=== PATIENT | female | born 1980 | race Caucasian/White ===

== ENCOUNTER 2021-10-31 11:24 | Observation (INO) | payer OTHER ==
[2021-10-31] MEDS ORDERED: NITROGLYCERIN SL TABS 0.4 MG TAB SUBLINGUAL STA (12:08)
[2021-10-31] MEDS ORDERED: ASPIRIN 81 MG PO STA (12:08)
--- NOTE | 2021-10-31 12:13 | ED ---
Chest Pain HPI - General Chief Complaint: Chest Pain Stated Complaint: chest pain, headache Time Seen by Provider: 10/31/21 11:44 Source: patient, RN notes reviewed Mode of arrival: ambulatory - History of Present Illness Initial Comments: 41-year-old female with no prior history of heart disease who states she's been having chest discomfort with radiation to left shoulder and neck area she states it started around 5:55 AM this morning. States she is also having intermittent palpitations and feeling like her heart beat harder over last several days. No fevers chills nausea vomiting sweats no cough or phlegm production nothing seems make his pain worse nothing seems make it better. Moderate severity. It later was described as an achy heaviness. MD Complaint: chest pain - Related Data Home Medications Medication Instructions Recorded Confirmed Melatonin 10mg Gummy 10 mg PO HS PRN 10/31/21 10/31/21 Allergies Allergy/AdvReac Type Severity Reaction Status Date / Time No Known Allergies Allergy Verified 10/31/21 14:03 Review of Systems ROS Statement: Those systems with pertinent positive or pertinent negative responses have been documented in the HPI. ROS Other: All systems not noted in ROS Statement are negative. EKG Findings - EKG Results: EKG: interpreted by FERDINAND, sinus rhythm (Sinus rhythm rate of 94. 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 Absent: scleral icterus, conjunctival injection, periorbital swelling ENT exam: Present: normal exam, mucous membranes moist Neck exam: Present: normal inspection, full ROM, other (No stridor JVD or bruits). Absent: tenderness, meningismus, lymphadenopathy Respiratory exam: Present: normal lung sounds bilaterally. Absent: respiratory distress, wheezes, rales, rhonchi, stridor, chest wall tenderness Cardiovascular Exam: Present: regular rate, normal rhythm, normal heart sounds. Absent: systolic murmur, diastolic murmur, rubs, gallop, clicks GI/Abdominal exam: Present: soft, normal bowel sounds. Absent: distended, tenderness, guarding, rebound, rigid Extremities exam: Present: normal inspection, full ROM, normal capillary refill. Absent: tenderness, pedal edema, joint swelling, calf tenderness Back exam: Present: normal inspection Neurological exam: Present: alert, oriented X3, CN II-XII intact Psychiatric exam: Present: normal affect, normal mood Skin exam: Present: warm, dry, intact, normal color. Absent: rash Course Vital Signs 10/31/21 10/31/21 10/31/21 11:31 12:16 13:31 Temperature 99.9 F H Pulse Rate 106 H 84 Respiratory 18 18 Rate Blood Pressure 190/125 133/85 O2 Sat by Pulse 99 98 Oximetry Chest Pain MDM - MDM Imaging reviewed no definitive findings I did discuss the findings with the patient the etiology at this time is unclear patient did have low-grade temperature upon arrival 98.9 she is a nonsmoker I did discuss case with her she will be admitted with cardiology consultation case was also d/w with Dr. Cee Disposition Clinical Impression: Chest pain, Atypical chest pain Disposition: ADMITTED IP TO THIS [facility] Condition: Fair Referrals: Stephen Benitez MD [Primary Care Provider] - 1-2 days
--- NOTE | 2021-10-31 12:58 | XR ---
EXAMINATION TYPE: XR chest 2V DATE OF EXAM: 10/31/2021 COMPARISON: Chest x-ray September 14, 2015. HISTORY: Chest pain. TECHNIQUE: Frontal and lateral views of the chest are obtained. FINDINGS: There is no suspicious new focal air space opacity, pleural effusion, or pneumothorax seen . The cardiac silhouette size remains within normal limits . Underlying scoliotic curvature redemons trated. Overlying EKG leads are now seen. IMPRESSION: No acute process.
[2021-10-31 13:02] LABS: Basophils # (A) 0.1 k/uL (0-0.2); Basophils % (A) 1 %; Eosinophils % (A) 0 %; HCT 41.8 % (34.0-46.0); HGB 13.8 gm/dL (11.4-16.0); Lymphocytes # (A) 2.5 k/uL (1.0-4.8); Lymphocytes % (A) 26 %; MCV 81.7 fL (80.0-100.0); Monocytes # (A) 0.5 k/uL (0-1.0); Monocytes % (A) 5 %; Neutrophils # (A) 6.3 k/uL (1.3-7.7); Neutrophils % (A) 65 %; Platelet Count 316 k/uL (150-450); RBC 5.11 m/uL (3.80-5.40); RDW 14.7 % (11.5-15.5); WBC 9.7 k/uL (3.8-10.6)
[2021-10-31 13:08] LABS: ALT 29 U/L (4-34); AST 31 U/L (14-36); African American GFR (CKD) >90 (>60 ml/min/1.73 sqM); Albumin 4.5 g/dL (3.5-5.0); Alkaline Phosphatase 93 U/L (38-126); Anion Gap 11 mmol/L; Blood Urea Nitrogen 10 mg/dL (7-17); Calcium 9.6 mg/dL (8.4-10.2); Carbon Dioxide 22 mmol/L (22-30); Chloride 106 mmol/L (98-107); Glucose 114 mg/dL (74-99); Lipase 147 U/L (23-300); Non-African American GFR(CKD) >90 (>60 ml/min/1.73 sqM); Potassium 3.9 mmol/L (3.5-5.1); Sodium 139 mmol/L (137-145); Total Bilirubin 0.5 mg/dL (0.2-1.3); Total Protein 7.6 g/dL (6.3-8.2)
[2021-10-31 13:27] LABS: INR 0.9 (<1.2); Partial Thromboplastin Time 23.4 sec (22.0-30.0); Prothrombin Time 10.1 sec (9.0-12.0)
[2021-10-31] MEDS ORDERED: NALOXONE 0.4 MG/ML 1 ML VIAL IV PRN (16:28)
[2021-10-31] MEDS ORDERED: METOPROLOL TARTRATE 12.5 MG TAB PO STA (17:54)
[2021-10-31] MEDS ORDERED: MELATONIN 3 MG TABLET PO PRN (18:08)
[2021-10-31] MEDS ORDERED: ONDANSETRON 4 MG/2 ML VIAL IVP PRN (18:08)
[2021-10-31] MEDS ORDERED: NALOXONE 0.4 MG/ML 1 ML VIAL IVP PRN (18:08)
[2021-10-31] MEDS ORDERED: ACETAMINOPHEN TAB 325 MG TAB PO PRN (18:10)
[2021-10-31] MEDS ORDERED: MELATONIN 5 MG TABLET PO PRN (18:11)
--- NOTE | 2021-10-31 18:30 | P.HPIM ---
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 On arrival to the ER her fever was 99 9 and pulse was 106 she was also noted to be hypertensive and blood pressure of 190/125. Initial EKG demonstrated normal sinus rhythm with normal access and no significant ST-T wave changes. Chest x-ray showed no acute process. Initial troponin was negative. Arrangements are made for her chest pain observation. Patient seen and examined at bedside in the emergency department. She reports that she came home from work this morning and had some left-sided retrosternal chest pain which she describes as a pressure, which radiated up into her left neck and down into her left arm and was associated with lightheadedness, dizziness, nausea, vomiting, and a feeling of a pounding in her chest. She reports that she became concerned and therefore reported to the ER. She denies any recent changes in medications. She reports that she had chest pain earlier this month and saw her primary care physician. She was also complaining of fatigue, weight gain, and shortness of breath. At that point in time he thought she had depression, though she describes no feelings of being depressed and suggested starting on multiple medications none of which she took. Her chest pain abated from that time until today. She has had some increasing GARCIA which is a band like feeling at the front of her head. She reports that she has been having some flushing and diaphoresis at times. She initially was followed with multiple echocardiograms as a child after having Kawasaki's requiring seven-day hospital stay. 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 Pertinent positives and negatives as discussed in HPI, a complete review of syst ems was performed and all other systems are negative. General: non toxic, no distress, appears at stated age Derm: warm, dry Head: atraumatic, normocephalic, symmetric Eyes: EOMI, no lid lag, anicteric sclera, pupils equal round reactive to light ENT: Nose and ears atraumatic, no thrush, no pharyngeal erythema Neck: No thyromegaly, no cervical lymphadenopathy, trachea midline, supple Mouth: no lip lesion, mucus membranes moist Cardiovascular: S1S2 reg, no murmur, positive posterior tibial pulse bilateral, no edema, capillary refill less than 2 seconds Lungs: clear to ascultation bilateral, no ronchi, no rales, no wheeze, no accessory muscle use Abdominal: soft, nontender to palpation, no guarding, no appreciable organomegaly, normal bowel sounds Ext: no gross muscle atrophy, muscle strength muscle strength 5 out of 5 in all 4 extremities, no contractures Neuro: CN II-XI grossly intact, light touch intact all 4 extremities, finger to nose within normal limits, Psych: Alert, oriented, appropriate affect Assessment/plan: Hypertensive urgency Chest pain -Start oral metoprolol first dose now -Await formal echocardiogram read, discussed with bench worker hollow handle in ascending aorta without signs of dissection -Serial troponins -Telemetry -Follow blood pressures -Check renal artery Dopplers -Check TSH -Check lipid profile and hemoglobin A1c Obesity with BMI 39.7 -Outpatient structured weight loss The patient is placed in observation with an anticipated less than 2 midnight stay for evaluation of chest pain. Surrogate decision-maker: Mother CODE STATUS: Full DVT prophylaxis: SCDs Discussed with:, Nursing, ED physician Anticipated discharge date: In a.m. Anticipated discharge place: home A total of 65 minutes was spent on the care of this complex patient more than 50% of the time was spent in counseling and care coordination. 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 History of Any Multi-Drug Resistant Organisms: None Reported Past Surgical History: Tubal Ligation Past Psychological History: No Psychological Hx Reported Smoking Status: Never smoker Past Alcohol Use History: None Reported Past Drug Use History: None Reported - Past Family History Mother Additional Family Medical History / Comment(s): HTN, possible renal artery abnormality, Lung cancer Father Additional Family Medical History / Comment(s): HTN, lung cancer Brother(s) Additional Family Medical History / Comment(s): HTN Medications and Allergies Home Medications Medication Instructions Recorded Confirmed Type Melatonin 10mg Gummy 10 mg PO HS PRN 10/31/21 10/31/21 History Allergies Allergy/AdvReac Type Severity Reaction Status Date / Time No Known Allergies Allergy Verified 10/31/21 14:03 Physical Exam Osteopathic Statement: *. No significant issues noted on an osteopathic structural exam other than those noted in the History and Physical/Consult. Vitals: Vital Signs Temp Pulse Resp BP Pulse Ox 10/31/21 16:50 97.9 F 90 18 122/86 97 10/31/21 13:31 84 133/85 98 10/31/21 12:16 18 10/31/21 11:31 99.9 F H 106 H 18 190/125 99 Intake and Output 10/31/21 10/31/21 10/31/21 06:59 14:59 22:59 Other: Weight 95.254 kg Results CBC & Chem 7: 10/31/21 12:30 10/31/21 12:30 Labs: Abnormal Lab Results - Last 24 Hours (Table) 10/31/21 Range/Units 12:30 Glucose 114 H (74-99) mg/dL
--- NOTE | 2021-10-31 20:01 | ECHOF ---
Referral Reason:myocarditis MEASUREMENTS -------- HEIGHT: 154.9 cm WEIGHT: 95.3 kg BP: 133/85 RVIDd: 2.9 cm (< 3.3) IVSd: 1.2 cm (0.6 - 1.1) LVIDd: 3.1 cm (3.9 - 5.3) LVPWd: 1.1 cm (0.6 - 1.1) IVSs: 1.6 cm LVIDs: 2.1 cm LVPWs: 1.5 cm LA Diam: 2.9 cm (2.7 - 3.8) Ao Diam: 3.4 cm (2.0 - 3.7) AV Cusp: 2.3 cm (1.5 - 2.6) MV EXCURSION: 10.325 mm (> 18.000) MV EF SLOPE: 18 mm/s (70 - 150) EPSS: 0.9 cm MV E Reinaldo: 0.86 m/s MV DecT: 251 ms MV A Reinaldo: 1.12 m/s MV E/A Ratio: 0.76 FINDINGS -------- Sinus rhythm. This was a technically adequate study. The left ventricular size is normal. There is borderline concentric left ventricular hypertrophy. Overall left ventricular systolic function is normal with, an EF between 60 - 65 %. The right ventricle is normal in size. The left atrium is normal in size. The right atrium is normal in size. The aortic valve is trileaflet, and appears structurally normal. No aortic stenosis or regurgitation. The mitral valve is normal. The tricuspid valve appears structurally normal. Unable to estimate RVSP due to inadequate TR jet s pectral doppler profile. The pulmonic valve is normal. The aortic root size is normal. IVC Not well visulized. There is no pericardial effusion. CONCLUSIONS -------- 1. The left ventricular size is normal. 2. There is borderline concentric left ventricular hypertrophy. 3. Overall left ventricular systolic function is normal with, an EF between 60 - 65 %. 4. There is no pericardial effusion. REPORT DEVELOPER: Gloria Gomes, [facility]
[2021-10-31] MEDS: METOPROLOL TARTRATE 12.5 MG TAB PO SCH (21:37)
[2021-11-01 06:14] LABS: HCT 43.3 % (34.0-46.0); HGB 13.2 gm/dL (11.4-16.0); Hypochromasia Moderate; MCHC 30.4 g/dL (31.0-37.0); MCV 85.6 fL (80.0-100.0); Mean Platelet Volume 8.8; Platelet Count 297 k/uL (150-450); RBC 5.06 m/uL (3.80-5.40); RDW 14.3 % (11.5-15.5); WBC 9.5 k/uL (3.8-10.6)
[2021-11-01 06:33] LABS: African American GFR (CKD) >90 (>60 ml/min/1.73 sqM); Anion Gap 11 mmol/L; Blood Urea Nitrogen 15 mg/dL (7-17); Calcium 9.1 mg/dL (8.4-10.2); Carbon Dioxide 21 mmol/L (22-30); Chloride 107 mmol/L (98-107); Glucose 95 mg/dL (74-99); Non-African American GFR(CKD) >90 (>60 ml/min/1.73 sqM); Potassium 3.8 mmol/L (3.5-5.1); Sodium 139 mmol/L (137-145)
--- NOTE | 2021-11-01 08:38 | P.CRDCN ---
History of Present Illness History of present illness: HISTORY OF PRESENTING ILLNESS This is a pleasant 41-year-old female past medical history significant for HELLP syndrome during , liver cirrhosis during , Kawasaki syndrome a s a child. 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 We have been asked to see in consultation for chest pain. Patient presented to the emergency department on 10/31/21 with complaints of chest discomfort, palpitations and headache. Patient stated she works nights and after work she experienced left-sided chest pain described as a pressure. She did have some radiation to her left neck and left shoulder. She also had symptoms of palpitations, felt her chest pounding. She did also have a headache, some lightheadedness. She states she mostly feels this discomfort prior to bed, she exhibits palpitations and has chest discomfort. It is non- exertional. No specific aggravating or alleviating factors. She denies any associated nausea, vomiting, syncope or near syncope. She states she is very ac tive. She denies any history of CAD, CA, Stroke, Diabetes, dyslipidemia. No further hypertension after her 8 years ago. She is a non-smoker. Denies illicit drug use. On admission patient hypotensive and tachycardiac blood pressure 190/125, heart rate 106 DIAGNOSTICS EKG reveals sinus rhythm, heart rate 94, T wave inversion in lead III, no acute STT wave abnormalities. Telemetry tracings indicate sinus mechanism, heart rate 60s Echocardiogram revealed an EF of 6065 percent, aortic root size is normal, no dissection that could be noted on echocardiogram Chest xray no acute cardiopulmonary process Laboratory reviewed, troponin is negative 3, viral PCR was negative, sodium 139, potassium 3.8, BUN 15, serum creatinine 0.69, d-dimer negative, proBNP 26, CBC unremarkable Current home medications include PRN melatonin REVIEW OF SYSTEMS At the time of my exam: CONSTITUTIONAL: Denies fever or chills. CARDIOVASCULAR: Denies chest pain, shortness of breath, orthopnea, PND or palpi tations. RESPIRATORY: Denies cough. GASTROINTESTINAL: Denies abdominal pain, diarrhea, constipation, nausea or vomiting. MUSCULOSKELETAL: Denies myalgias. NEUROLOGIC: Denies numbness, tingling, headache or weakness. ENDOCRINE: Denies fatigue, weight change, polydipsia or polyurina. GENITOURINARY: Denies burning, hematuria or urgency with micturation. HEMATOLOGIC: Denies history of anemia or bleeding. PHYSICAL EXAMINATION Blood pressure 107/56, heart rate 62, afebrile, oxygen saturation is 98% on room air CONSTITUTIONAL: No apparent distress. HEENT: Head is normocephalic. Pupils are equal, round. Sclerae anicteric. Mucous membranes of the mouth are moist. No JVD. No carotid bruit. CHEST EXAMINATION: Lungs are clear to auscultation. No chest wall tenderness is noted on palpation or with deep breathing. HEART EXAMINATION: Regular rate and rhythm. S1, S2 heard. No murmurs, gallops or rub. ABDOMEN: Soft, nontender. Positive bowel sounds. EXTREMITIES: 2+ peripheral pulses, no lower extremity edema and no calf tenderness. SKIN: warm, dry NEUROLOGIC EXAMINATION: Patient is awake, alert and oriented x3. ASSESSMENT Chest discomfort, atypical acute coronary syndrome has been ruled out, likely related to hypertension Hypertensive urgency Sinus tachycardia Obesity BMI 39 PLAN Patient with improvement in blood pressure and heart rate with metoprolol Renal ultrasound ordered From a cardiology perspective, no further inpatient workup at this time. Patient may benefit from event monitor as an outpatient. Patient's symptoms resolved, unlikely aortic dissection, if there is continuous concern for aortic dissection CT should be performed. Thank you kindly for this consultation. Nurse practitioner note has been reviewed by physician. Signing provider agrees with the documented findings, assessment, and plan of care. 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 History of Any Multi-Drug Resistant Organisms: None Reported Past Surgical History: Tubal Ligation Past Anesthesia/Blood Transfusion Reactions: No Reported Reaction Past Psychological History: No Psychological Hx Reported Smoking Status: Never smoker Past Alcohol Use History: None Reported Past Drug Use History: None Reported - Past Family History Mother Additional Family Medical History / Comment(s): HTN, possible renal artery abnormality, Lung cancer Father Additional Family Medical History / Comment(s): HTN, lung cancer Brother(s) Additional Family Medical History / Comment(s): HTN Medications and Allergies Home Medications Medication Instructions Recorded Confirmed Type Melatonin 10mg Gummy 10 mg PO HS PRN 10/31/21 10/31/21 History Allergies Allergy/AdvReac Type Severity Reaction Status Date / Time No Known Allergies Allergy Verified 10/31/21 14:03 Physical Exam Vitals: Vital Signs Temp Pulse Pulse Resp BP BP Pulse Ox 11/01/21 07:51 93 L 11/01/21 03:25 97.3 F L 62 17 107/56 98 10/31/21 21:21 98.4 F 58 L 19 124/72 97 10/31/21 20:32 73 20 141/83 99 10/31/21 18:52 92 18 173/112 98 10/31/21 16:50 97.9 F 90 18 122/86 97 10/31/21 13:31 84 133/85 98 10/31/21 12:16 18 10/31/21 11:31 99.9 F H 106 H 18 190/125 99 Intake and Output 10/31/21 11/01/21 11/01/21 22:59 06:59 14:59 Other: # Voids 1 1 Weight 95.254 kg Results 11/01/21 04:57 11/01/21 04:57 Cardiac Enzymes 10/31/21 10/31/21 10/31/21 Range/Units 12:30 12:30 18:29 AST 31 (14-36) U/L Troponin I <0.012 <0.012 (0.000-0.034) ng/mL 10/31/21 11/01/21 Range/Units 22:06 00:59 AST (14-36) U/L Troponin I <0.012 <0.012 (0.000-0.034) ng/mL Coagulation 10/31/21 Range/Units 12:30 PT 10.1 (9.0-12.0) sec APTT 23.4 (22.0-30.0) sec CBC 10/31/21 11/01/21 Range/Units 12:30 04:57 WBC 9.7 9.5 (3.8-10.6) k/uL RBC 5.11 5.06 (3.80-5.40) m/uL Hgb 13.8 13.2 (11.4-16.0) gm/dL Hct 41.8 43.3 (34.0-46.0) % Plt Count 316 297 (150-450) k/uL Comprehensive Metabolic Panel 10/31/21 11/01/21 Range/Units 12:30 04:57 Sodium 139 139 (137-145) mmol/L Potassium 3.9 3.8 (3.5-5.1) mmol/L Chloride 106 107 (98-107) mmol/L Carbon Dioxide 22 21 L (22-30) mmol/L BUN 10 15 (7-17) mg/dL Creatinine 0.66 0.69 (0.52-1.04) mg/dL Glucose 114 H 95 (74-99) mg/dL Calcium 9.6 9.1 (8.4-10.2) mg/dL AST 31 (14-36) U/L ALT 29 (4-34) U/L Alkaline Phosphatase 93 (38-126) U/L Total Protein 7.6 (6.3-8.2) g/dL Albumin 4.5 (3.5-5.0) g/dL Current Medications Generic Name Dose Route Start Last Admin Trade Name Freq PRN Reason Stop Dose Admin Acetaminophen 650 mg 10/31/21 18:10 Acetaminophen Tab 325 Mg Tab PO Q6HR PRN Fever and/ or MILD Pain Aspirin 81 mg 11/01/21 09:00 Aspirin 81 Mg PO DAILY KIRSTEN Melatonin 10 mg 10/31/21 18:11 10/31/21 21:44 Melatonin 5 Mg Tablet PO 10 mg HS PRN Administration Insomnia Metoprolol Tartrate 12.5 mg 10/31/21 21:00 10/31/21 21:37 Metoprolol Tartrate 12.5 Mg Tab PO Not Given BID KIRSTEN Naloxone HCl 0.2 mg 10/31/21 18:08 Naloxone 0.4 Mg/Ml 1 Ml Vial IVP Q2M PRN Opioid Reversal Ondansetron HCl 4 mg 10/31/21 18:08 Ondansetron 4 Mg/2 Ml Vial IVP Q8HR PRN Nausea And Vomiting Intake and Output 10/31/21 11/01/21 11/01/21 22:59 06:59 14:59 Other: # Voids 1 1 Weight 95.254 kg 11/01/21 04:57 11/01/21 04:57
[2021-11-01] MEDS ORDERED: ASPIRIN 81 MG PO SCH (09:00)
[2021-11-01 09:37] VITALS: BP 146/89; PULSE 68; RESP 18; TEMP 97.7
[2021-11-01 09:38] LABS: Chol/HDL Ratio 3.83 Ratio; LDL Cholesterol,Calculated 96.5 mg/dL (0.0-131.0)
[2021-11-01] MEDS: METOPROLOL TARTRATE 12.5 MG TAB PO SCH (10:16)
[2021-11-01 11:23] LABS: Appearance,Urine Clear (Clear); Bilirubin,Urine Negative (Negative); Blood,Urine Negative (Negative); Color,Urine Yellow; Glucose,Urine (UA) Negative (Negative); Ketones,Urine Negative (Negative); Leukocyte Esterase,Urine Negative (Negative); Nitrite,Urine Negative (Negative); Protein,Urine Trace (Negative); Specific Gravity,Urine 1.029 (1.001-1.035); Urobilinogen,Urine <2.0 mg/dL (<2.0)
--- NOTE | 2021-11-01 12:36 | US ---
EXAMINATION TYPE: US renal artery duplex complete DATE OF EXAM: 11/01/2021 COMPARISON: NONE CLINICAL HISTORY: 41-year-old female hypertension TECHNIQUE: Possible sonographic images of the kidneys are obtained. Color Doppler and spectral wavefo rm analysis of the renal arteries. FINDINGS: MEASUREMENTS: RENAL SIZE: Rt Kidney: 11.6 x 3.9 x 4.7cm Lt Kidney: 11.8 x 4.9 x 5.6cm RESISTANCE INDEX Right: 0.67 Left: 0.68 Aortic peak systolic velocity: 84.4 cm/s RA/AO RATIO (< 3.5 ) Right: 1.3 Left: 1.8 RA VELOCITY ( < 180 cm/s) Right: 108cm/s Left: 150cm/s Some incidental prominent renal sinus fat. No hydronephrosis. Left kidney lobular. There is a round 2 .9 cm hypoechoic area along the upper to midpole cortex there is a masslike appearance on transverse images but appears normal on sagittal. IMPRESSION: 1. No sonographic evidence for renal artery stenosis. 2. Suspect a 2.9 cm prominent renal cortical lobulation along the upper to mid pole of the left kidne y. No clear persisting mass is identified on sagittal scanning. Three-month follow-up ultrasound bella mmended to reassess this area. If any suspicious changes occur, further contrast enhanced CT or MRI w ill be recommended.
--- NOTE | 2021-11-01 16:10 | P.DS ---
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 On arrival to the ER her fever was 99 9 and pulse was 106 she was also noted to be hypertensive and blood pressure of 190/125. Initial EKG demonstrated normal sinus rhythm with normal access and no significant ST-T wave changes. Chest x-ray showed no acute process. Initial troponin was negative. She was placed in observation for her chest pain. Troponin remained normal. She was started on metoprolol with adequate response and normal blood pressures. She underwent echocardiogram which demonstrated borderline LVH with an ejection fraction 60-65%. Renal ultrasound demonstrated 2.9 cm prominent renal cortical lobulation, no clear persisting mass identified on sagittal imaging but recommen ded 3 month follow-up ultrasound, no renal artery stenosis. Patient continued to do well and was subsequently discharged home. Follow-up: Scars antibody testing pending, and continue with metoprolol with instructions to increase to 1 tablet twice daily as needed. Follow up with cardiology. Follow-up with Dr. Benitez. Patient seen and examined at bedside. Feeling better. Headache improved. No additional chest pain or shortness of breath. She agreed and is aware of instructions as above. Vital signs reviewed and stable. General: non toxic, no distress, appears at stated age Derm: warm, dry Head: atraumatic, normocephalic, symmetric Eyes: EOMI, no lid lag, anicteric sclera Mouth: no lip lesion, mucus membranes moist Cardiovascular: S1S2 reg, no murmur, positive posterior tibial pulse bilateral, Lungs: CTA bilateral, no rhonchi, no rales , no accessory muscle use Abdominal: soft, nontender to palpation, no guarding, no appreciable organomegaly Ext: no gross muscle atrophy, no edema, no contractures Neuro: CN II-XI grossly intact, no focal neuro deficits Psych: Alert, oriented, appropriate affect A total of 25 minutes of time were spent preparing this complex discharge selam diaz . Patient Condition at Discharge: Fair Plan - Discharge Summary Discharge Rx Participant: No New Discharge Prescriptions: New Metoprolol Tartrate [Lopressor] 12.5 mg PO BID #60 tablet Continue Melatonin 10mg Gummy 10 mg PO HS PRN PRN Reason: Insomnia Discharge Medication List Melatonin 10mg Gummy 10 mg PO HS PRN 10/31/21 [History] Metoprolol Tartrate [Lopressor] 12.5 mg PO BID #60 tablet 11/01/21 [Rx] Follow up Appointment(s)/Referral(s): Stephen Benitez MD [Primary Care Provider] - 1-2 days Suhail Merchant MD [STAFF PHYSICIAN] - 2 Weeks Patient Instructions/Handouts: Chest Pain (DC), Acute Headache (DC) Activity/Diet/Wound Care/Special Instructions: Activity: as tolerated Diet: Heart healthy diet Special Instructions: Check Blood pressure once daily. If your top blood pressure stays greater than 155 or the bottom blood pressure greater than 105 then increase your metoprolol to one tablet daily. Repeat renal ultrasound suggested in 3 months. Discharge Disposition: HOME SELF-CARE
== END 2021-11-01 15:22 | disposition home or self-care (01) ==
LOC: EC 11:24 → 6NMEDSUR 16:30
PROVIDERS: ADMIT Internal Medicine; ATTEND Internal Medicine
DX: I16.0 Hypertensive urgency (principal); R07.89 Other chest pain; E66.9 Obesity, unspecified; Z68.39 Body mass index [BMI] 39.0-39.9, adult; Z87.39 Personal history of other diseases of the musculoskeletal system and connective tissue; Z87.59 Personal history of other complications of pregnancy, childbirth and the puerperium; Z98.51 Tubal ligation status; Z80.1 Family history of malignant neoplasm of trachea, bronchus and lung; Z82.49 Family history of ischemic heart disease and other diseases of the circulatory system; R50.9 Fever, unspecified
CPT/HCPCS: 99285; 36415; 93005; 93306; 85379; 83880; 80061; 80053; 80048; 84443; 83690; 83735; 84484 ×2; 85025; 85027; 85610; 85730; 81003; 87086; 87077; 87186; 83036; 87636; 71046; 93975; G0378 ×2